=== PATIENT | male | born 1955 | race Caucasian/White ===

== ENCOUNTER 2020-10-26 15:28 | Emergency (ER) | payer OTHER, SELFPAY ==
--- NOTE | 2020-10-26 15:31 | ED.SKABFB ---
HPI - Skin/Abscess/Foreign Bdy General Chief complaint: Skin/Abscess/Foreign Body Stated complaint: scaley arms Time Seen by Provider: 10/26/20 15:31 Source: patient and RN notes reviewed History of Present Illness HPI narrative: Patient is a 64-year-old male who presents the urgent care with complaints of bilateral scaly dried arms. Patient states that it started 2 days ago and he sits outside and smokes a lot in the sun. Patient states that he has been spraying alcohol on the arms and scratching them consistently. Patient states that his is worried about impetigo . Denies of any fever, chills, nausea, vomiting. No other acute complaints. No acute distress noted. Patient aware of the plan of care. Some parts of this dictation were generated by voice recognition software and may contain typographical and/or grammatical inaccuracies. Related Data Allergies Allergy/AdvReac Type Severity Reaction Status Date / Time No Known Allergies Allergy Verified 10/26/20 15:43 Review of Systems Review of Systems: Narrative: CONSTITUTIONAL: Denies fever, chills, or sweats. EYES: Denies visual changes, redness, or discharge. ENT: Denies rhinorrhea, congestion, sore throat, or otalgia. CARDIOVASCULAR: Denies chest pain, palpitations, or edema. RESPIRATORY: Denies cough or dyspnea. GASTROINTESTINAL: Denies abdominal pain, nausea, vomiting, or diarrhea. GENITOURINARY: Denies dysuria or hematuria. SKIN: Reports of scaly itchy skin to bilateral arms MUSCULOSKELETAL: Denies back pain, joint pain, or myalgia. NEUROLOGIC: Denies headache, numbness, or weakness. All other systems reviewed are negative, except as documented in HPI. PMFSH Comments At the time of my signature, I reviewed and agree with the nursing past medical, surgical, social, and family history. There is no relevant family history pertinent to the patient complaint. Exam Narrative: Exam Narrative: GENERAL: This is a well-nourished, well-developed patient, in no apparent distress. HEAD: normocephalic, atraumatic. EYES: PERRL. Sclera clear/white. Vision is grossly intact. EARS: External ears normal NOSE: External nose normal with no obvious nasal discharge, nares without redness, no rhinorrhea. THROAT: Mucous membranes moist, NECK: Neck supple CARDIOVASCULAR: Regular rate and rhythm without murmurs, gallops, or rubs. RESPIRATORY: Clear to auscultation. Breath sounds equal bilaterally. No wheezes, rales, or rhonchi. SKIN: Dry erythemic pruritic scabbed skin diffusely throughout bilateral forearms NEURO: awake, alert, and oriented to person, place and time. There were no obvious focal neurologic abnormalities. EXTREMITIES: No clubbing, cyanosis, or edema. Course Vital Signs Vital signs: Vital Signs Temperature 98.3 F 10/26/20 15:38 Pulse Rate 89 10/26/20 15:38 Respiratory Rate 16 10/26/20 15:38 Blood Pressure 110/75 10/26/20 15:38 Pulse Oximetry 99 10/26/20 15:38 Temperature 98.3 F 10/26/20 15:44 Pulse Rate 89 10/26/20 15:44 Respiratory Rate 16 10/26/20 15:44 Blood Pressure 110/75 10/26/20 15:44 Pulse Oximetry 99 10/26/20 15:44 Reviewed MDM - Skin/Abscess/Foreign Bdy MDM Narrative Medical decision making narrative: Advised the patient to use prescription cream to the affected areas twice a day. Complete the steroid regimen as prescribed. Be sure to eat and drink with the medication. Use Vaseline or CeraVe a lotion [id number] intermittently. It is important to keep the skin very moist. Do not use peroxide or alcohol?it dries the skin. Do not sit out in the sun. You need to cover the arms at night to avoid scratching the areas. If you develop any increase in symptoms associated fever, nausea, vomiting?go to the emergency room. Otherwise follow-up with your PCP within 2 to 5 days or for worsening symptoms or failure to improve. Discharge Plan Discharge Clinical Impression: Dry skin dermatitis Patient Disposition: H
[2020-10-26 15:38] VITALS: BP 110/75; PULSE 89; RESP 16; TEMP 36.8; O2SAT 99
[2020-10-26 15:44] VITALS: BP 110/75; PULSE 89; RESP 16; TEMP 36.8; O2SAT 99
== END 2020-10-26 15:55 | disposition home or self-care (01) ==
PROVIDERS: Emergency Provider Nurse Practitioner Family
DX: L85.3 Xerosis cutis (principal)
CPT/HCPCS: 99213; G0463